=== PATIENT | female | born 1995 ===

== ENCOUNTER → 2021-08-17 | Outpatient (CLI) | payer BC ==
[2021-08-19 10:11] LABS: HBSAG SCREEN Negative (Negative); HEP A AB, IGM Negative (Negative); HEP B CORE AB, IGM Negative (Negative); HEP C VIRUS AB <0.1 (0.0-0.9); HIV AB/P24 AG SCREEN Non Reactive (Non Reactive)
[2021-08-19 17:11] LABS: CHLAMYDIA BY NAA Negative (Negative); GONOCOCCUS BY NAA Negative (Negative); TRICH VAG BY NAA Negative (Negative)
== END ==
LOC: LAB SHORT 18:21
PROVIDERS: Physician Assistant Medical
DX: Z72.51 High risk heterosexual behavior (principal); R30.0 Dysuria
CPT/HCPCS: 86592; 87086